=== PATIENT | male | born 1955 | race Caucasian/White ===

== ENCOUNTER → 2016-10-17 | Outpatient (CLI) | payer SELFPAY ==
[2015-08-16 11:44] VITALS: BP 103/73
--- NOTE | 2016-10-17 13:50 | CT ---
CORONARY CALCIUM SCORE CLINICAL INDICATION: Screening COMPARISON: None PROCEDURE: Gated images of the coronary arteries. Coronary artery calcium scoring was performed. FINDINGS: Coronary calcium scoring - 59 LM: 0 LAD: 31 LCX: 0 RCA: 28 IMPRESSION: 1. Calcium score of 59. This places the patient at approximately the 50th-75th percentile for males of equivalent age. Definite mild left sclerotic plaque. Mild or minimal coronary narrowings likely. Reported By:
== END ==
LOC: RAD 08:21
PROVIDERS: ATTEND Internal Medicine
DX: Z13.6 Encounter for screening for cardiovascular disorders (principal)